=== PATIENT | female | born 1990 | race Caucasian/White ===

== ENCOUNTER → 2022-02-23 13:26 | Outpatient (CLI) | payer OTHER, SELFPAY ==
[2022-02-23 14:22] LABS: Basophils # 0.1 K/mm3 (0-0.2); Basophils % 0.9 % (0.1-2.0); Eosinophils # 0.1 K/mm3 (0.0-0.4); Eosinophils % 1.9 % (0.1-12.0); Hematocrit 43.9 % (37.0-47.0); Hemoglobin 14.1 g/dL (12.2-16.2); Lymphocytes # 1.7 K/mm3 (0.7-4.5); Mean Corpuscular HGB Conc 32.1 g/dL (31.8-35.4); Mean Corpuscular Hemoglobin 30.6 pg (27.0-31.2); Mean Corpuscular Volume 95.4 fl (81-99); Mean Platelet Volume 9.5 fl (7.4-10.4); Monocytes # 0.3 K/mm3 (0.1-1.0); Monocytes % 5.8 % (1.7-9.3); Neutrophils # 3.5 K/mm3 (1.8-7.8); Neutrophils % 61.5 % (37.0-80.0); Platelet Count 158 K/mm3 (142-424); Red Cell Distribution Width 12.6 % (11.5-17.5); White Blood Count 5.7 K/mm3 (4.8-10.8)
[2022-02-23 15:37] LABS: Alanine Aminotransferase 24 U/L (12-78); Albumin Level 4.2 g/dl (3.5-5.0); Albumin/Globulin Ratio 1.7 (1.1-1.8); Alkaline Phosphatase 77 U/L (38-126); Anion Gap 15.6 mEq/L (5-15); Aspartate Amino Transferase 25 U/L (14-36); Bilirubin,Total 0.6 mg/dl (0.2-1.3); Blood Urea Nitrogen 12 mg/dl (7-17); Calcium 9.6 mg/dl (8.4-10.2); Carbon Dioxide 29 mmol/L (22.0-30.0); Chloride 102 mmol/L (98-107); Estimated Glomerular Filt Rate 83 ml/min (>60); GFR (African American) 100 ML/MIN (>60); Globulin 2.5 g/dL (1.3-3.2); Glucose 85 mg/dl (74-100); Potassium 4.6 mmoL/L (3.5-5.1); Sodium 142 mmol/L (136-145); Total Protein,Serum 6.7 g/dl (6.3-8.2)
[2022-02-23 16:09] LABS: Thyroid Stimulating Hormone 0.88 uIU/mL (0.465-4.68)
== END ==
PROVIDERS: PCP Nurse Practitioner Family; Visit Provider Nurse Practitioner Family
DX: R10.11 Right upper quadrant pain (principal); R63.4 Abnormal weight loss
CPT/HCPCS: 36415; 80053; 84443; 85025

== ENCOUNTER → 2022-03-01 08:44 | Outpatient (CLI) | payer OTHER, SELFPAY ==
--- NOTE | 2022-03-01 09:22 | US_ITS ---
FINAL REPORT CLINICAL HISTORY: RUQ FINDINGS: ULTRASOUND RIGHT UPPER QUADRANT Sonographic imaging of the right upper quadrant was obtained. The pancreas is partially obscured. There are scattered foci of fatty infiltration of the liver. There are multiple large gallstones measuring up to 1.5 cm. There is no gallbladder wall thickening. There is no biliary ductal dilatation. The common duct is normal at 4 mm. Limited images of the right kidney are unremarkable. IMPRESSION: Multiple large gallstones. Reviewed, Interpreted and Dictated by Beto Lima MD Transcribed by Katelynn Velez Authenticated and [facility]
== END ==
LOC: RAD 08:45
PROVIDERS: PCP Nurse Practitioner Family; Visit Provider Nurse Practitioner Family
DX: R10.11 Right upper quadrant pain (principal)
CPT/HCPCS: 76705

== ENCOUNTER → 2022-03-15 10:23 | Outpatient (CLI) | payer OTHER, SELFPAY ==
[2022-03-15 10:47] LABS: Urine Pregnancy, HCG Qual. Negative (Negative)
== END ==
LOC: LAB 10:24
PROVIDERS: PCP Nurse Practitioner Family; Visit Provider Surgery
DX: Z01.812 Encounter for preprocedural laboratory examination (principal); K80.20 Calculus of gallbladder without cholecystitis without obstruction
CPT/HCPCS: 81025

== ENCOUNTER 2022-03-18 07:42 | Day surgery (SDC) | payer OTHER, SELFPAY ==
[2022-03-15 10:15] VITALS: BMI 35.4
[2022-03-18] VITALS (19 sets, daily range): BP systolic 102–127; BP diastolic 61–70; PULSE 66–98; RESP 15–18; TEMP 36.1–43; O2SAT 96–100
--- NOTE | 2022-03-18 08:00 | P.PN_ITS ---
[facility] Disclaimer: The information contained in this section may have been updated after the patient was seen, as this information can be updated by other users. Medical History No significant past medical history Surgical History History of arthroscopic knee surgery History of History of tonsillectomy Hx of LASIK Family History Other Family history of cardiac disorder Social History Smoking Status: Never smoker alcohol intake: never substance use type: denies use current occupational status: employed Travel in the last 8 weeks: None household members: spouse and children [facility] Anesthesia Checklist Patient Identification Patient Identification: Arm Band and Verbal (Name & ) Structural Data Admitted From: Home Planned Operative Procedure/s: Lap. cholecystectomy Consent for Planned Operative Procedure(s) Verified: Yes NPO Status Verified Time NPO: 00:00 Chart Verification Results Verified: HCG Airway Assessment C-Spine Mobility Assessed: Yes TMJ Mobility Assessed: Yes Dentition: Good Dentition Neurological Assessment Level of Consciousness: Awake Hx Seizures: No Numbness or tingling in extremities: No Anesthesia Plan Anesthesia Risk discussed: Yes Anesthesia Plan: Verified ASA Class: I Anesthesia Type: General
--- NOTE | 2022-03-18 08:02 | SUR.PREOP ---
Pt progress number given to , Casey, verbalized understanding of system
--- NOTE | 2022-03-18 10:15 | EXP.OP.NOTE ---
Date of procedure: 03/18/22 Pre-op Diagnosis:: Symptomatic cholelithiasis Post-op Diagnosis:: Chronic calculus cholecystitis Procedure performed:: Laparoscopic cholecystectomy Surgeon:: Tin Corbin MD Anesthesia: GETNeela Estimated blood loss (mL): 15 Operative findings:: Significant pericholecystic fat stranding in gallbladder distention Operative note:: After informed consent was obtained, the patient was taken to the operating room and placed in the supine position. General anesthesia was induced and the abdomen was prepped and draped in a sterile fashion. After infiltration with local anesthetic an infraumbilical incision was made. A Veress needle was placed in position. The abdomen was insufflated. A 5 mm optical trocar was placed in position. Under direct visualization, a 12 mm trocar was placed in the subxiphoid position and 2 additional 5 mm trocars were placed in the right upper quadrant. The gallbladder was elevated up and over the liver margin. The tissue around the cystic duct was carefully dissected. 3 clips were placed proximally and the duct was transected with harmonic dave. Harmonic dave were then utilized to dissect the gallbladder away from the liver margin with careful attention to the control of the cystic artery. The gallbladder was placed in a retrieval bag and removed through the subxiphoid trocar site. The right upper quadrant was thoroughly irrigated. No active bleeding or bile leak was noted. Fascia at the subxiphoid trocar site was reapproximated utilizing 0 Ethibond. The remaining trocars were removed. All wounds were irrigated and skin was closed with 4-0 Monocryl in a subcuticular fashion. Steri-Strips were applied. The patient's anesthetic agents were reversed and extubation was completed prior to transfer to recovery in stable condition. Condition: stable Disposition: PACU Specimens:: Gallbladder and contents Complications:: No immediate
--- NOTE | 2022-03-18 10:30 | EXP.ANES.I ---
[facility] Anesthesia Record Part I Anesthesia Record I Intake, IV Amount: 1,200 Estimated blood loss (mL): 10 Urine output (mL): 0 Blood Products used (#): none Blood Pressure: 119/70 SaO2: 98 Pulse Rate: 98 Respiratory Rate: 16 Temperature: 97 F Patient is:: Drowsy and Stable Stable to PACU at:: 10:23
--- NOTE | 2022-03-18 11:09 | SUR.PHASEI ---
1102- detailed report called to peter elias in post op at this time 1104- pt left in stable condition with peter elias with all VSS, bed in lowest position with side rails up.
--- NOTE | 2022-03-18 12:59 | SUR.PHASEII ---
1134- pt c/o nausea. Emesis bag provided along with a cold towel for the back of the neck 1142- T.O. from [place] 4mg of IV Zofran once. If not relieved, give 12.5mg of Phenergan once 1148- IV Zofran given to pt 1204- Pt saying she has no relief from the nausea. 12.5mg IV Phenergan administered in 25mL bag of NS 1230- Pt relays adequate relief from nausea but once to rest until she is sure 1250- Pt states she is ready to get dressed and go home. IV removed, this RN assisted pt with getting dressed and she was wheeled out to her 's vehicle in satisfactory condition. This RN did encourage pt and to call if the nausea persists to potentially get a prescription from her MD.
--- NOTE | 2022-03-19 07:22 | P.PNANES_ITS ---
[facility] Anesthesia Record Part II Anesthesia Record Part II Discharge Time: 11:03 Destination: Surgical Day Care (OP Surgery) PACU nurse assessment reviewed?: Yes Patient Condition:: Good Anesthesia Complications:: None Swallowing reflex intact?: Yes Cyanosis?: No Blood Pressure: 117/64 Pulse Rate: 70 Temperature: 97.2 F Mental Status: Alert & Oriented Pain level:: 3 Nausea and/or vomitting:: None Intake, IV Amount: 0
[2022-03-19 07:23] VITALS: BP 117/64; PULSE 70; TEMP 36.2
== END 2022-03-18 12:56 | disposition home or self-care (01) ==
PROVIDERS: PCP Nurse Practitioner Family; Visit Provider Surgery
PROC: 0FT44ZZ Resection of Gallbladder, Percutaneous Endoscopic Approach (ICD-10-PCS; CPT 47562; principal; 2022-03-18 09:15)
DX: K80.10 Calculus of gallbladder with chronic cholecystitis without obstruction (principal)
CPT/HCPCS: 47562; 96374; J2405

== ENCOUNTER 2023-10-31 08:24 | Outpatient (CLI) | payer OTHER, SELFPAY ==
--- NOTE | 2023-10-31 08:24 | US_ITS ---
PROCEDURE: US TRANSVAGINAL CLINICAL INDICATION: pelvic pain COMPARISON: US US ABDOMEN LIMITED from 03/01/2022 FINDINGS: Transvaginal sonographic images of the pelvis were obtained. UTERUS: 7.1cm x 5.3cmx 5.0cm retro flow with a combined endometrial thickness of 9mm. LEFT OVARY: 2.7 cmx1.8 cmx1.3cm with a volume of 3.2ml. There are multiple small follicles throughout the left ovary. RIGHT OVARY: 3.3cmx 1.5 cmx1.5 cm with a volume of 3.8ml. There are several small follicles. Both ovaries are seen and appear normal. Doppler flow to both ovaries are seen. There is a small amount of fluid in the cul-de-sac. IMPRESSION: 1. Retroflexed uterus normal in shape and size. The endometrium is normal and measures 9.0 mm. 2. Both ovaries are seen, appear normal and contain multiple small follicles. 3. There is a small amount of fluid in the cul-de-sac. Dictated by: Yousif Mujica MD 10/31/2023 11:29 Yousif Mujica MD in OV 10/31/2023 11:29
== END 2023-10-31 23:59 | disposition home or self-care (01) ==
LOC: RAD 08:24
PROVIDERS: PCP Internal Medicine Adolescent Medicine; Visit Provider Obstetrics & Gynecology
DX: R10.2 Pelvic and perineal pain (principal)
CPT/HCPCS: 76830